=== PATIENT | female | born 1970 | race Caucasian/White ===

== ENCOUNTER 2022-02-17 08:00 | Outpatient (CLI) | payer OTHER ==
--- NOTE | 2022-02-17 17:40 | XRAY Report ---
PROCEDURE: Shoulder 3 View RT INDICATIONS: STRAIN OF MUSCLES, AND TENDONS OF R ROTATOR CUFF TECHNIQUE: 3 views of the shoulder were acquired. COMPARISON: None. FINDINGS: Bones: No fractures or dislocations. No suspicious bony lesions. Visualized ribs appear intact. Soft tissues: No suspicious soft tissue calcifications. IMPRESSION: No shoulder fracture or dislocation. Joint spaces are fairly well preserved. No gross so ft tissue abnormalities. Reviewed by: Keegan Alberto MD on 02/17/2022 5:38 PM PDT Approved by: Keegan Alberto MD on 02/17/2022 5:38 PM PDT Station ID: [id number]
== END 2022-02-17 23:59 | disposition home or self-care (01) ==
LOC: DI.N 08:00
PROVIDERS: ATTEND Emergency Medicine
DX: S46.011A Strain of muscle(s) and tendon(s) of the rotator cuff of right shoulder, initial encounter (principal)

== ENCOUNTER 2022-03-24 16:10 | Outpatient (CLI) | payer OTHER ==
--- NOTE | 2022-03-24 14:13 | XRAY Report ---
PROCEDURE: Shoulder 3 View RT INDICATIONS: RIGHT SHOULDER PAIN TECHNIQUE: 3 views of the shoulder were acquired. COMPARISON: None. FINDINGS: Bones: No fractures or dislocations. No suspicious bony lesions. Visualized ribs appear intact. M ild to moderate acromioclavicular degenerative narrowing. Soft tissues: No suspicious soft tissue calcifications. 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 Reviewed by: Rianna Stover MD on 03/24/2022 2:12 PM PST Approved by: Rianna Stover MD on 03/24/2022 2:12 PM PST Station ID: [id number]
== END 2022-03-24 16:11 | disposition home or self-care (01) ==
LOC: DI.WOS 16:10
PROVIDERS: ATTEND Physician Assistant Surgical
DX: M19.011 Primary osteoarthritis, right shoulder (principal)